=== PATIENT | female | born 1960 | race Caucasian/White ===

== ENCOUNTER → 2025-06-22 | Outpatient (CLI) | payer MEDICARE, MEDICAID ==
[2025-06-22 13:56] VITALS: TEMP 98.8
[2025-06-22 14:47] VITALS: BP 153/77; O2SAT 97
[2025-06-22] MEDS: LIDOCAINE 1% MDV 20 ML VIAL SC STA (15:05)
== END ==
LOC: M IRPRO 13:39
PROVIDERS: ATTEND Otolaryngology
DX: E04.1 Nontoxic single thyroid nodule (principal)